=== PATIENT | female | born 2005 | race Caucasian/White ===

== ENCOUNTER 2024-03-25 16:16 | Outpatient (REF) | payer MEDICAID, SELFPAY ==
[2024-03-25 19:41] LABS: CT PCR NOT DETECTED (Not Detect.); NG PCR NOT DETECTED (Not Detect.)
== END 2024-03-25 16:17 | disposition home or self-care (01) ==
LOC: HO.CHCLNP 16:16
PROVIDERS: Visit Provider Family Medicine
DX: Z11.3 Encounter for screening for infections with a predominantly sexual mode of transmission (principal)
CPT/HCPCS: 87491; 87591

== ENCOUNTER 2025-04-12 13:59 | Outpatient (REF) | payer MEDICAID, SELFPAY ==
--- OUTSIDE RECORDS SUMMARY | 2025-04-12 15:21 | XMS_ITS | Clinical Summary ---
Author Organization [facility] Address [address] [place] [phone] Phone Care Team Providers Care Corporate Risk Analyst Name Role Phone Unavailable Primary Care Provider Unavailabl e Allergies No known active allergies Medications benzoyl peroxide ( BENZOYL PEROXIDE WASH) 5 % external liquidIndications :Acne vulgaris Apply topically 2 (two) times a day. 142 g 12 9 Active ibuprofen 600 MG tablet TOME MERARI TABLETA CADA OCHO HORAS CON ALIMENTO CUANDO SEA NECESARIO PARA EL DOLOR 0 9 Active ketoconazole 2 % shampooIndication s:Tinea versicolor Use daily x 3 days, then once or twice weekly for 4 weeks. Apply to damp skin, lather, leave on 5 minutes, and rinse 120 mL 1 3 Active Rmy-Zv-Cpikhn 0.18/0.215/0.25 MG-25 MCG per tabletIndications :Encounter for surveillance of contraceptive pills TOME MERARI TABLETA TODOS LOS PRUITT 84 tablet 1 3 Active Additional Information Patient not taking.Reported on 08/08/2023 hydrocortisone 2.5 % creamIndications: Nummular eczema Apply topically 2 (two) times a day as needed for rash. 28 g 3 Active Active Problems Problem Noted Date Diagnosed Date Nummular eczema 08/10/2023 Macromastia 08/10/2023 Assessment & Plan (08/10/2023 11:40 PM EST): Discussed consult with plastic surgery for breast reduction surgery. Contact information given. Nicotine use 11/08/2022 Marijuana use 11/08/2022 Gastroesophageal reflux disease 11/08/2022 Myopia 03/19/2021 Assessment & Plan (03/19/2021 10:17 AM EDT): List of eye doctors given to Manisha and mother. Psychosocial stressors 03/19/2021 Assessment & Plan (03/19/2021 10:18 AM EDT): Agree with therapy for support and coping with mother's illness. May make an appointment here or at an outside organization. List given to Manisha and mother. Dysmenorrhea 04/04/2020 Overview (04/04/2020): 04/04/2020 (age 14 yr 3 mo): Discussed options, pt chooses to try depo provera shot. No migraine, No HTN, No FHx clots. Assessment & Plan (04/21/2020 2:04 PM EDT): 04/21/2020 (age 14 yr 4 mo): depo provera given today. Follow up 3 month. Immunizations Immunization Administration Dates Next Due COVID-19 Pfizer, monovalent, 12+ years 1 COVID-19 Pfizer, blayne-sucros e, 12+ years 11/17/2021 DTaP 5 01/07/2008, 5,07/02/2004,04/20,02/03/2004 HPV Vaccine 9 Valent 2016,09/22/2015 Hep A, ped/adol 09/22/2015,01/31/2011 Hep B, ped/adol 10/05/2004,07/02/2004,2003 Hib (HbOC) 03/22/2005,07/02/2004,04/20/2004 Hib (PRP-T) 02/03/2004 IPV 01/07/2008, 5,04/20/2004,02/02 Influenza, injectable, quadr ivalent, preservative free 07/26/2020 Influenza, injectable, trivalent 06/21/2005 MMR 01/07/2008,01/29/2005 Meningococcal B Trumenba 08/08/2023,03/22/2022 Meningococcal Conj (Menactra) MCV4P 02/18/2020,0 09/22/2015 Pneumococcal Conjugate 03/22/2005,2003,04/20/2004,02/02 Tdap 09/22/2015 Varicella 01/07/2008,01/29/2005 Family History Medical History Relation Name Comments No Known Problems Brother Niall No Known Problems Father Jose Berkowitz Stomach cancer Mother Leslie Chavez Relation Name Status Comments Brother Niall Alive Brother: Alive and well Father Jose Berkowitz Alive Father: Alive a nd well Mother Leslie Chavez Alive Mother: Alive and well Social History Tobacco Use Types Packs/Day Years Used Date Smoking Tobacco: Never Smokeless Tobacco: Never Tobacco Cessation:Counseling Given: Yes Alcohol Use Standard Drinks/Week Comments No 0 (1 standard drink = 0.6 oz pur e alcohol) Hunger/Food Answer Date Recorded In the last 12 months, did y ou or your family ever eat less than you felt you should because there wasn't enough money for food? No 08/08/2023 Stable Housing Answer Date Recorded Are you worried that in the next 2 months you may not have stable housing? No 08/08/2023 Transportation Concerns Answer Date Rec orded In the last 12 months, have you or your family ever had to go without healthcare because you didn't have a way to get there? No 08/08/2023 Hazards in Home Answer Date Recorded Think about the place you li ve. Do you have problems with any of the following? Pests (mice or roaches), mold, no/not working smoke detectors, water leaks, no window guards. No 2022 Financing Utilities Answer Date Recorde d In the last 12 months, has t he electric, gas, oil, or water company threatened to shut off your services in your home? No 08/08/2023 Safety at Home Answer Date Recorded Are you or your family worried about feeling saf e in your home? No 08/08/2023 Outside Support Answer Date Recorded Do you feel that you need mo re support from other people or programs to help you care for yourself or your family? No 08/08/2023 Understanding Health Concerns Answer Da te Recorded Do you need help understandi ng your or your child's healthcare needs (diagnosis, medications, plan, etc.)? No 08/08/2023 Financing Health Concerns Answer Date R ecorded In the last 12 months, was t here a time when your child needed to see a doctor or get medications or supplies but could not because of cost? No 08/08/2023 Missing School or Work Answer Date Feng rded Did you or your child miss s chool or work because of a health problem that could have been avoided? No 08/08/2023 Comments No Sex and Gender Information Value Date Recorded Sex Assigned at Female 02/18/2020 9:36 AM EDT Legal Sex Female 4:54 PM EDT Gender Identity Female 02/18/2020 9:36 AM EDT Sexual Orientation Don't know 02/18/2020 9: 36 AM EDT Last Filed Vital Signs Vital Sign Reading Time Taken Comments Blood Pressure 113/80 08/08/2023 1:24 PM EST Pulse 97 08/08/2023 1:24 PM EST Temperature 36.4 C (97.6 F) 08/08/2023 1:24 PM EST Respiratory Rate - - Oxygen Saturation - - Inhaled Oxygen Concentration - - Weight 77.5 kg (170 lb 12.8 oz) 08/08/2023 1:24 PM EST Height 150.5 cm (4' 11.25 ) 08/08/2023 1:[address] Body Mass Index 34.2 08/08/2023 1:24 PM EST Plan of Treatment Health Maintenance Due Date Last Done Comments COVID-19 Vaccine (2023-2 5 season) 2024 11/17/2021, 01/12/2021, 12/21/2020 Influenza Vaccines (#1) 2025 07/26/2020, 06/21 DTaP,Tdap,and Td Vaccines (7 - Td or Tdap) 09/22/2025 09/22/2015, 01/07/2008, 06/21/2005, Additional history exists Hepatitis B Vaccines Completed 10/05/2004, 07/02/2004, 2003 HIB Vaccines Completed 03/22/2005, 03/2004, 04/20/2004, Additional history exists Pneumococcal Vaccine Completed 03/22/2005, 07/02/2004, 04/20/2004, Additional history exists IPV Vaccines Completed 01/07/2008, 09/25, 04/20/2004, Additional history exists MMR Vaccines Completed 01/07/2008, 01/29/2005 Varicella Vaccines Completed 01/07/2008, 01/29/2005 Hepatitis A Vaccines Completed 09/22/2015, 02/01/20 11 HPV Vaccines Completed 2016, 09/22/2015 Meningococcal Vaccine Completed 02/18/2020, 016 Men B Vaccine Completed 08/08/2023, 03/22/2022 Procedures * Due to [place] [employer] law, this organization might not be sharing sensitive test results. Procedure Name Priority Date/Time Associated Diagnosis Comments CHLAMYDIA AND GONORRHEA, AMPLIFIED Routine 08/08/2023 2:21 PM EST Screening examination for bacterial and spirochetal disease from Last 3 Months or Most Recently Relevant to Health Maintenance Results * Due to [place] [employer] law, this organization might not be sharing sensitive test results. * Chlamydia and Gonorrhoea, Amplified (Urine) (08/08/2023 2:21 PM EST) Chlamydia Trachomatis, DNA Probe NEGATIVE (NEG) [facility] Comment: No Chlamydia Trachomatis RNA detected in this patient's sample (REFERENCE RANGE/NORMAL VALUE: NOT DETECTED) Note: This test uses filler spreader- mediated amplification method to detect rRNA from C. Trachomatis URINE GC AMP PROBE NEGATIVE (NEG) [facility] Comment: No Neisseria Gonorrhoeae RNA detected in this patient's sample (REFERENCE RANGE/NORMAL VALUE: NOT DETECTED) NOTE: This test uses filler spreader-mediated amplification method to detect rRNA from N.Gonorrhoeae. A negative result does not preclude infection. In the case of a negative urine result, testing of an endocervical(female) or urethral (male) specimen is recommended if there is high clinical suspicion of infection. Due to very high sensitivity of Nucleic Acid Amplification Test, false positive results may occur. Therefore, specimen handling is extremely important. In patients in whom the disease is unlikely, additional sample for testing should be considered after an initial positive result. The performance characteristics of this test have not been evaluated in children. The Aptima Combo2 assay is not intended for the evaluation of suspected sexual abuse or for other medico-legal indications. The ordering provider should assess if the patient had consensual sex without risk of sexual abuse. Consult the [facility] if needed. Contact phone number . Therapeutic failure or success cannot be determined with the Aptima Combo2 assay since nucleic acid may persist following appropriate antimicrobial therapy. The Centers for Disease Control and Prevention (CDC) recommends confirmatory retesting using culture or a different nucleic acid amplification test when positive results occur, if indicated. Testing performed or reported by [facility], a Service of [facility], [facility] [place] [address] Nick Casey MD, Carbon Coater Machine Operator [facility]# [id number] Urine (Urine, Random (not clean void)) 08/08/2023 2:21 PM EST 08/08/2023 11:24 PM EST us Nunu Davenport MD LAB MICROBIOLOGY - GENERAL LOUIS URIAS Final Result [facility] from Last 3 Months or Most Recently Relevant to Health Maintenance
--- OUTSIDE RECORDS SUMMARY | 2025-04-12 15:21 | XMS_ITS | Clinical Summary ---
Author Organization [employer] Address [address] [place] [address] Care Team Providers Care Training Developer Name Role Phone Mariela Harden MD Primary Care Provider [phone] Allergies No known active allergies Medications triamcinolone (Kenalog) 0.5 % ointment Apply topically 2 times daily. 30 g 4 Active pseudoephedrine (Sudafed) 30 MG tablet Take 1 tablet (30 mg) by mouth every 4 (four) hours if needed for congestion for up to 10 days. 30 tablet 4 Active albuterol 108 (90 Base) MCG/ACT inhaler Inhale 2 puffs every 4 (four) hours if needed for wheezing. 18 g 4 07/08/20 25 Active Active Problems Problem Noted Date Diagnosed Date Rash 03/25/2024 Upper back pain, chronic 03/25/2024 Assessment & Plan (03/26/2024 9:19 AM EDT): Ordering XR for further investigation and referral to Physical Therapy for aid of Sx. Class 2 obesity with body ma ss index (BMI) of 36.0 to 36.9 in adult 03/25/2024 Assessment & Plan (03/26/2024 9:20 AM EDT): Discussed treatment options and potential side effects. Ordering lab work for further evaluation. Nummular eczema 08/10/2023 Macromastia 08/10/2023 Overview (03/25/2024): Last Assessment & Plan: Discussed consult with plastic surgery for breast reduction surgery. Contact information given. Nicotine use 11/08/2022 Marijuana use 11/08/2022 Gastroesophageal reflux disease 11/08/2022 Psychosocial stressors 03/19/2021 Overview (03/25/2024): Last Assessment & Plan: Agree with therapy for support and coping with mother's illness. May make an appointment here or at an outside organization. List given to Manisha and mother. Myopia 03/19/2021 Overview (03/25/2024): Last Assessment & Plan: List of eye doctors given to Manisha and mother. Dysmenorrhea 04/04/2020 Overview (03/25/2024): 04/04/2020 (age 14 yr 3 mo): Discussed options, pt chooses to try depo provera shot. No migraine, No HTN, No FHx clots. Last Assessment & Plan: 04/21/2020 (age 14 yr 4 mo): depo provera given today. Follow up 3 month. Encounters Date Type Department Care Team Description 04/12/2025 Telephone [facility] [address] [place] [phone] Mariela Harden MD from Last 3 Months Immunizations Immunization Administration Dates Next Due DTaP, 5 pertussis antigens 01/07/2008,,07/02/2004,04/20,02/03/2004 HPV 9-Valent 2016,09/22/2015 Hep A, ped/adol, 2 dose 09/22/2015,01/31/2011 Hep B, Adolescent or Pediatric 10/05/2004,2003,2003 Hib (HbOC) 03/22/2005,07/02/2004,04/20/2004 Hib (PRP-T) 02/03/2004 IPV 01/07/2008, 5,04/20/2004,02/02 Influenza injectable quadriv alent preservative free 07/26/2020 Influenza, IIV3, injectable 06/21/2005 MMR 01/07/2008,01/29/2005 Meningococcal B, Recombinant 08/08/2023,03/22/20 22 Meningococcal MCV4P [id number] 02/18/2020,09/22/19 16 Pfizer Covid-19 Vaccine 12+ 01/12/2021 Pneumococcal Conjugate PCV 7 03/22/2005, 07/02/2004,04/20/2004,02/02 Tdap 09/22/2015 Varicella 01/07/2008,01/29/2005 Family History Medical History Relation Name Comments Stomach cancer Mother [phone] Relation Name Status Comments Maternal Grandfather Mother Paternal Grandfather Paternal Grandmother Social History Tobacco Use Types Packs/Day Years Used Date Smoking Tobacco: Unknown Passive Smoke Exposure: Never Smokeless Tobacco: Never Tobacco Cessation:Counseling Given: Not Answered Alcohol Use Standard Drinks/Week Comments Yes 0 (1 standard drink = 0.6 oz pur e alcohol) Social Comments Unknown Sex and Gender Information Value Date Recorded Sex Assigned at Female 03/15/2024 3:17 PM EDT Legal Sex Female 3:23 PM EST Gender Identity Female 03/15/2024 3:17 PM EDT Sexual Orientation Straight 03/15/2024 3: 17 PM EDT Last Filed Vital Signs Vital Sign Reading Time Taken Comments Blood Pressure 105/66 07/08/2024 8:54 AM EST Pulse 62 07/08/2024 8:54 AM EST Temperature 36.1 C (97 F) 07/08/2024 8:54 AM EST Respiratory Rate 18 07/08/2024 8:54 AM EST Oxygen Saturation 97% 07/08/2024 8:54 AM EST Inhaled Oxygen Concentration - - Weight 77.2 kg (170 lb 3.2 oz) 03/25/2024 1:33 P M EDT Height 144.8 cm (4' 9 ) 03/25/2024 1:33 PM EDT Body Mass Index 36.83 03/25/2024 1:33 PM EDT Plan of Treatment Health Maintenance Due Date Last Done Comments Depression Screening 2003 HIV Screening 2003 Lipid Panel 2003 SDOH Screening 2003 Disability Screening 2003 Alcohol/Substance Use Screening 2015 Family Planning (PISQ) 12/04/2018 Hepatitis C Screening 12/04/2021 COVID-19 Vaccine ( season) 2024 11/17/2021, 01/12/2021, 12/21/2020 Pap Smear 12/04/2024 Chlamydia and Gonorrhea Screening 03/25/2025 03/25/2024, 08/08/2023 Tobacco Screening 03/25/2025 03/25/2024 Influenza Vaccine (#1) 2025 07/26/2020, 2004 DTaP/Tdap/Td Vaccines (7 - Td or Tdap) 09/22/2025 09/22/2015, 01/07/2008, 06/21/2005, Additional history exists Zoster Vaccines (1 of 2) 12/04/2053 RSV Patients and Patients Aged 60 years or older (1 - 1-dose 75+ series) 12/04/2078 Hepatitis B Vaccines Completed 10/05/2004, 07/02/2004, 2003 HIB Vaccines Completed 03/22/2005, 03/2004, 04/20/2004, Additional history exists Pneumococcal Vaccine: Pediatrics (0 to 5 Years) and At-Risk Patients (6 to 49) Years Aged Out 03/22/2005, 07/02/2004, 04/20/2004, Additional history exists No longer eligible based on patient's age to complete this topic IPV Vaccines Completed 01/07/2008, 09/25, 04/20/2004, Additional history exists Hepatitis A Vaccines Completed 09/22/2015, 02/01/20 11 HPV Vaccines Completed 2016, 09/22/2015 Meningococcal Vaccine Completed 02/18/2020, 016 Meningococcal B Vaccine Completed 08/08/2023, 03/22 RSV under 20 months Aged Out No longe r eligible based on patient's age to complete this topic Rotavirus Vaccines Aged Out No longer eligible based on patient's age to complete this topic Procedures Procedure Name Priority Date/Time Associated Diagnosis Comments CHLAMYDIA/N. GONORRHOEAE RNA, TMA, UROGENITAL Routine 03/25/2024 2:16 PM EDT Routine screening for STI (sexually transmitted infection) from Last 3 Months or Most Recently Relevant to Health Maintenance Results * Chlamydia/N. Gonorrhoeae RNA, TMA, Urogenitial (03/25/2024 2:16 PM EDT) CT PCR NOT DETECTED Not Detect. [facility] Comment:A not detected test result does not exclude the possibilityof infection because test results can be affected byimproper specimen collection, concurrent antibiotic therapy,or the number of organisms in the specimen which may bebelow the sensitivity of the test. As with many diagnostictests, results from the Xpert CT/NG assay should beinterpreted in conjunction with other laboratory andclinical data available to the clinician.Xpert CT/NG performance has not been evaluated in patientsless than 14 years of age. The assay should not be used forthe evaluationof suspected sexual abuse or for other medico-legalindications. Additional testing is recommended in anycircumstance when false positive or false negative resultscould lead to adverse medical, social or psychologicalconsequences. NG PCR NOT DETECTED Not Detect. [facility] Comment:A not detected test result does not exclude the possibilityof infection because test results can be affected byimproper specimen collection, concurrent antibiotic therapy,or the number of organisms in the specimen which may bebelow the sensitivity of the test. As with many diagnostictests, results from the Xpert CT/NG assay should beinterpreted in conjunction with other laboratory andclinical data available to the clinician.Xpert CT/NG performance has not been evaluated in patientsless than 14 years of age. The assay should not be used forthe evaluationof suspected sexual abuse or for other medico-legalindications. Additional testing is recommended in anycircumstance when false positive or false negative resultscould lead to adverse medical, social or psychologicalconsequences. Urine (Urine, Random) 03/25/2024 2:16 PM EDT 03/25/2024 5:27 PM EDT Narrative [facility] - 03/25/2024 7:42 PM EDT Urine us Mariela Harden MD LAB MICROBIOLOGY - GENERAL OR DERABLES Final Result [facility] [address] [place] [phone] from Last 3 Months or Most Recently Relevant to Health Maintenance [facility] Care Teams Training Developer Relationship Specialty Start Date End Date Mariela Harden MD [address] [place] [phone] PCP - General Family Medicine 01/23/24
[2025-04-13 08:24] LABS: Syphilis Screen Nonreactive (Nonreactive)
[2025-04-13 08:39] LABS: HIV Num 1 0.05 S/CO (0.00-0.99); ~HepC Num1 0.08 S/CO (0.00-0.79); ~Hepatitis C Antibody Nonreactive (Nonreactive)
== END 2025-04-12 14:00 | disposition home or self-care (01) ==
LOC: HO.HHCL 13:59
PROVIDERS: PCP Family Medicine; Visit Provider Family Medicine
DX: Z11.3 Encounter for screening for infections with a predominantly sexual mode of transmission (principal); Z11.4 Encounter for screening for human immunodeficiency virus [HIV]; Z11.59 Encounter for screening for other viral diseases
CPT/HCPCS: 36415; 86780; 86803; 87389